=== PATIENT | male | born 1975 | race Caucasian/White ===

== ENCOUNTER 2017-08-15 20:18 | Emergency (ER) | payer MEDICAID, SELFPAY ==
[2017-08-15] MEDS ORDERED: Sodium Chloride 0.9% 1,000 ML ONE (21:00)
[2017-08-15] MEDS ORDERED: Sodium Chloride 0.9% 100 ML ONE (21:02)
[2017-08-15] MEDS ORDERED: cefTRIAXone\\ROCEPHIN 1 GM VIAL ONE (21:02)
[2017-08-15] MEDS ORDERED: HYDROcodone/Acetaminophen 10/325 mg Tablet ONE (21:03)
[2017-08-15 21:17] LABS: #Basophils 0.2 thou/uL (0.0-0.2); #Eosinphils 0.7 thou/uL (0.0-0.7); #Lymphocytes 4.2 thou/uL (1.20-3.40); #Monocytes 0.5 thou/uL (0.11-0.59); #Neutrophils 7.4 thou/uL (1.40-6.50); %Basophils 1.5 % (0.0-1.0); %Eosinophils 5.4 % (0.0-10.0); %Lymphocytes 32.5 % (21.0-51.0); %Monocytes 3.8 % (0.0-10.0); %Neutrophils 56.9 % (42.0-75.0); Mean Corpuscular HGB CONC 33.1 g/dL (32.0-36.0); Mean Corpuscular Hemoglobin 27.7 pg (27.0-31.0); Mean Corpuscular Volume 83.7 fl (80.0-94.0); Mean Platelet Volume 6.9 fL (7.4-10.4); Platelet Count 381 thou/uL (130-400); RBC Distribution Width 12.3 % (11.5-14.5); Red Blood Cell (RBC) Count 5.07 mill/uL (4.70-6.10)
[2017-08-15 21:30] LABS: Glucose 670 mg/dL (70-105)
[2017-08-15] MEDS ORDERED: Insulin Regular 300 UNITS/3 ML VIAL ONE (21:31)
[2017-08-15] MEDS ORDERED: Sodium Chloride 0.9% 250 ML 250 ML ONE (21:32)
[2017-08-15 21:37] LABS: Anion Gap 19 mmol/L (10-20); BUN (Urea Nitrogen) 22 mg/dL (8.9-20.6); Calc. Creatinine Clearance 0 mL/min (70-130); Carbon Dioxide 18 mmol/L (22-29); Chloride 94 mmol/L (98-107); Estimated GFR-MDRD 63; Potassium 4.4 mmol/L (3.5-5.1); Sodium 127 mmol/L (136-145)
[2017-08-15 21:38] LABS: ALT (SGPT) 17 U/L (8-55); AST (SGOT) 10 U/L (5-34); Albumin 4.1 g/dL (3.5-5.0); Alkaline Phosphatase 136 U/L (40-150); Bilirubin, Total 0.2 mg/dL (0.2-1.2); Calcium 8.6 mg/dL (7.8-10.44); Globulin 2.3 g/dL (2.4-3.5); Protein, Total 6.4 g/dL (6.0-8.3)
[2017-08-15] MEDS ORDERED: Ondansetron HCl/PF 4 MG/2 ML Vial ONE (21:48)
--- NOTE | 2017-08-15 22:11 | RAD ---
THREE VIEWS RIGHT FOOT: Indication: History of cellulitis and diabetes. FINDINGS: There is soft tissue swelling involving the partial ray amputation of great toe. No soft tissue gas is grossly evident. There is edema and soft tissue thickening involving the dorsal aspect of the lay t as well as the anterior aspect of the ankle. [place] calcifications are seen within the foreleg. No destructive osteolysis is seen to suggest radiographic evidence of osteomyelitis. Lisfranc align ment is preserved. IMPRESSION: 1. Soft tissue swelling of the partial ray amputation of the great toe, dorsal foot and dorsal forel eg may reflect sequella of cellulitis. No soft tissue gas or radiopaque foreign body is evident. 2. No radiographic evidence of osteomyelitis. POS: [facility]
--- NOTE | 2017-08-15 22:13 | RAD ---
THREE VIEWS RIGHT ANKLE: Indication: Cellulitis. FINDINGS: There is soft tissue swelling involving the anterior aspect of the right foreleg. Enthesopathic cheng ges are seen involving the distal tibia and fibula. No acute fracture or subluxation is evident. No destructive osteolysis is seen. IMPRESSION: 1. Soft tissue swelling of the right foreleg may reflect changes of cellulitis. 2. No acute fracture or subluxation is demonstrated. 3. No destructive osteolysis is seen to suggest the presence of osteomyelitis. POS: [facility]
== END 2017-08-15 22:45 | disposition short-term general hospital (02) ==
LOC: NAV ERS 20:18
DX: T81.4XXA Infection following a procedure, initial encounter (principal); A41.9 Sepsis, unspecified organism; E11.628 Type 2 diabetes mellitus with other skin complications; E11.65 Type 2 diabetes mellitus with hyperglycemia; L03.031 Cellulitis of right toe; E78.5 Hyperlipidemia, unspecified; I10 Essential (primary) hypertension; F17.210 Nicotine dependence, cigarettes, uncomplicated; Z79.4 Long term (current) use of insulin; Z79.891 Long term (current) use of opiate analgesic; Z79.899 Other long term (current) drug therapy; Z89.411 Acquired absence of right great toe
CPT/HCPCS: 36416; 80053; 83605; 85025; 86140; 87040; 96361; 96365; 96375; J0696; J1815; J2405; J3370; J7050